=== PATIENT | male | born 1975 | race Caucasian/White ===

== ENCOUNTER 2017-01-16 19:47 | Emergency (ER) | payer MEDICAID ==
--- NOTE | 2017-01-22 07:42 | ER ---
ADMIT: 01/16/2017 RM/LOC: ER [facility] MR#: [id number] [facility] [address] [place], [place] [id number] MAGDA FAYE [address] [place] [address] Emergency Room Report SEX: M AGE: 41 : 1975 DATE: 01/16/2017 TIME: 1947 hours. Please refer to my T-sheet for complete H and P. HISTORY OF PRESENT ILLNESS: Briefly, the patient is a 41-year-old, who said 2 weeks of kind of some abdominal cramping and his bowels does not seem right. No vomiting. He has had kidney stones, it does not feel like. He rates his discomfort when it comes, 9/10. PHYSICAL EXAMINATION: VITAL SIGNS: Stable. HEENT: Grossly normal. LUNGS: Clear. ABDOMEN: Soft, really nontender. No rebound or guarding. SKIN: No rash. EMERGENCY DEPARTMENT COURSE: CBC normal. Chemistries normal except glucose 122. UA normal except 10 red cells. I gave him Reglan 10 mg IM, a bottle of magnesium citrate, he was improved. I discussed about the hematuria, he understood and would follow up if problems. ASSESSMENT: 1. Abdominal pain. 2. Constipation. 3. Microscopic hematuria. PLAN: Fluids. Return if worse. Tylenol, Motrin, Reglan. See Dr. Mays in 3 to 4 days for recheck. Mil Fonseca MD/ marshal JOB #: [id number] CC: Mil Fonseca MD, Attending Physician Lonny Mays MD, Family Physician
== END 2017-01-16 21:38 | disposition home or self-care (01) ==
LOC: ER 19:47
DX: K59.00 Constipation, unspecified (principal); R31.29 Other microscopic hematuria; K21.9 Gastro-esophageal reflux disease without esophagitis; Z87.442 Personal history of urinary calculi